=== PATIENT | male | born 1985 | race American Indian/Alaskan Native ===

== ENCOUNTER 2018-03-29 19:10 | Inpatient (IN) | payer MEDICAID ==
--- NOTE | 2018-03-29 19:56 | C.PDOC ---
History Of Present Illness Patient presents to the ER stating he is hearing voices telling him to hurt himself. Patient states he plans on overdosing on heroin and cocaine. Denies physical complaints at this time. Time Seen by Provider: 03/29/18 19:56 Chief Complaint (Nursing): Psychiatric Evaluation History Per: Patient History/Exam Limitations: no limitations Onset/Duration Of Symptoms: Days Current Symptoms Are (Timing): Still Present Suicide/Self Injury Attempted (Context): None Severity: None Pain Scale Rating Of: 0 Associated Symptoms: Suicidal Thoughts, Suicidal Plan, Other (Hearing voices) Involuntary Hold By: None Recent travel outside of the [place]: No Additional History Per: Patient Past Medical History Reviewed: Historical Data, Nursing Documentation, Vital Signs Vital Signs: Last Vital Signs Temp 98.5 F 03/29/18 21:44 Pulse 72 03/29/18 21:44 Resp 20 03/29/18 21:44 BP 105/53 L 03/29/18 21:44 Pulse Ox 98 03/29/18 22:48 - Medical History PMH: Depression, Schizophrenia Family History: States: No Known Family Hx - Social History Hx Alcohol Use: No (DENIED) Hx Substance Use: Yes Review Of Systems Constitutional: Negative for: Fever, Chills Cardiovascular: Negative for: Chest Pain, Palpitations Respiratory: Negative for: Cough, Shortness of Breath Gastrointestinal: Negative for: Nausea, Vomiting Psych: Positive for: Suicidal ideation (w/ plan), Other (Hearing voices) Physical Exam - Physical Exam Appears: Non-toxic Skin: Warm, Dry Head: Normacephalic Eye(s): bilateral: Normal Inspection Oral Mucosa: Moist Neck: Supple Chest: Symmetrical, No Tenderness Cardiovascular: Rhythm Regular Respiratory: No Rales, No Rhonchi, No Wheezing Gastrointestinal/Abdominal: Soft, No Tenderness Back: Normal Inspection Extremity: Normal ROM Extremity: Bilateral: Atraumatic Neurological/Psych: Oriented x3 Gait: Steady ED Course And Treatment - Laboratory Results Result Diagrams: 03/29/18 20:22 03/29/18 20:22 O2 Sat by Pulse Oximetry: 98 (room air) Pulse Ox Interpretation: Normal Progress Note: Blood work and urinalysis ordered. Crisis notifed. Disposition Discussed With : Elisa Palafox Comment: accepted the pt on his service and took over the care at 10:40PM Doctor Will See Patient In The: Hospital Counseled Patient/Family Regarding: Studies Performed, Diagnosis - Disposition Disposition: HOSPITALIZED Disposition Time: 19:56 Condition: FAIR Forms: [facility] (Belizean) - POA Present On Arrival: Poor Glycemic Control - Clinical Impression Clinical Impression: Schizoaffective disorder - Scribe Statement The provider has reviewed the documentation as recorded by the Scribherbert Shore All medical record entries made by the Scribe were at my direction and personally dictated by me. I have reviewed the chart and agree that the record accurately reflects my personal performance of the history, physical exam, medical decision making, and the department course for this patient. I have also personally directed, reviewed, and agree with the discharge instructions and disposition. Decision To Admit - Pt Status Changed To: Hospital Disposition Of: Inpatient - Admit Certification Admit to Inpatient:: After my assessment, the patient will require hospitalization for at least two midnights. This is because of the severity of symptoms shown, intensity of services needed, and/or the medical risk in this patient being treated as an outpatient. - InPatient: Physician Admission Certification: I certify that this patient requires 2 or more midnights of care for the following reason:: After my assessment, the patient will require hospitalization for at least two midnights. This is because of the severity of symptoms shown, intensity of services needed, and/or the medical risk in this patient being treated as an outpatient. - . Bed Request Type: Psychiatry Patient Diagnosis: Schizoaffective disorder
[2018-03-29 20:25] LABS: BASO % 0.1 % (0.0-2.0); EOS % 0.1 % (0.0-4.0); HEMOGLOBIN 10.7 g/dL (12.0-18.0); LYMPH # 1.4 K/uL (1.0-4.3); LYMPH % 13.5 % (20.0-40.0); MEAN CELL VOLUME 87.6 fL (80.0-94.0); MEAN CORPUSCULAR HEMOGLOBIN 30.3 pg (27.0-31.0); MEAN CORPUSCULAR HGB CONC 34.6 g/dL (33.0-37.0); MONO # 0.9 K/uL (0.0-0.8); MONO % 8.1 % (0.0-10.0); NEUT # 8.2 K/uL (1.8-7.0); NEUT % 78.2 % (50.0-75.0); RBC 3.52 Mil/uL (4.40-5.90); WHITE BLOOD COUNT 10.6 K/uL (4.8-10.8)
[2018-03-29 20:37] LABS: ALB/GLOB RATIO 0.9 (1.0-2.1); ALBUMIN 3.5 g/dL (3.5-5.0); ALT/SGPT 23 U/L (21-72); AST/SGOT 27 U/L (17-59); BLOOD UREA NITROGEN 17 mg/dL (9-20); CALCIUM 8.7 mg/dl (8.6-10.4); GFR AFRICAN-AMERICAN > 60; GFR NON-AFRICAN AMERICAN > 60
[2018-03-29 21:18] LABS: BARBITURATES, UR NEGATIVE (NEGATIVE); PHENCYCLIDINE, UR NEGATIVE (NEGATIVE)
[2018-03-29 21:25] LABS: SPERM URINE OCC /hpf; SQUAMOUS EPITHIAL < 1 /hpf (0-5); URINE BACTERIA RARE (<OCC); URINE BILIRUBIN NEGATIVE (NEGATIVE); URINE CLARITY Hazy (Clear); URINE COLOR Yellow (YELLOW); URINE GLUCOSE (UA) NORMAL (Normal); URINE LEUKOCYTE ESTERASE NEG Leu/uL (Negative); URINE PROTEIN 1+ mg/dL (NEGATIVE)
[2018-03-29 21:31] LABS: URINE BLOOD 1+ (NEGATIVE)
[2018-03-29 21:37] LABS: BENZODIAZEPINES, UR POSITIVE (NEGATIVE); OPIATES, UR POSITIVE (NEGATIVE)
--- NOTE | 2018-03-30 00:55 | PCM.BM ---
<Lorraine Callejas - Last Filed: 03/30/18 00:52> Treatment Plan Problems - Problems identified on initial assessmt Suicidal ideation Date Initiated: 03/29/18 Time Initiated: 00:30 Assessment reference: NA Status: Active Depression Date Initiated: 03/29/18 Time Initiated: 00:30 Assessment reference: NA Status: Active Treatment assets and liabiliti Patient Assests: cooperative, ADL independent, negotiates basic needs Patient Liabilities: live alone, substance abuse - Milieu Protocol Maintain good personal hygiene: daily Encourage regular showers, daily Remind patient to perform daily oral care, daily Assist patient to perform ADL's Maintain personal safety: every shift Educate patient to report safety concerns to staff, every shift Monitor environment for contraband/sharps Medication safety: Monitor for expected outcome, potential side effects: every shift, Assess barriers to learning: every shift, Assess readiness for medication education: every shift <Johnathan Valentine - Last Filed: 04/01/18 10:35> - Diagnosis (1) Schizoaffective disorder Status: Acute Interventions: 04/01/18 10:35 * Assess/adjust medications daily and /or as needed * See patient on an individual basis 7x/week to assess status of hallucinations * Discuss risks, benefits, side effects and alternatives of medications * (2) Opioid use disorder, severe, dependence Status: Acute Interventions: 04/01/18 10:35 * Assess 7x/week regarding severity of withdrawal * Educate regarding risks, benefits, side effects and alternatives of medications * Use Motivational Interviewing for abstinence * Use CBT for relapse prevention * Medication management for withdrawal symptoms * Encourage medication assisted treatment * <Sonya Reyes - Last Filed: 04/01/18 12:12> Family Contact Family involvement: Patient does not wish Family/SO involvement Family contact: Patient declines to allow family contact at present - Goals for Treatment Patient goals for treatment: "I want to be referred to [facility] rehab in [place]." Discharge/Continuing Care - Education Needs Education Needs: Patient Medication, Patient Diagnosis/Disease Process, Patient Coping Skills, Patient Community resources - Discharge Discharge Criteria: Free of Suicidal thoughts, Normal sleep pattern, Ability to care for self, No longer exhibiting s/s of withdrawal, Reduction of target symptoms Discharge to:: Substance Abuse Rehab - Treatment Team Participation Discussed with Family/SO: No Was Patient/Family/SO present at Treatment Team Meeting: Yes
[2018-03-30] MEDS ORDERED: Pneumococcal 23-Valent Vaccine IM ONE (01:48)
[2018-03-30 06:31] VITALS: O2SAT 97
--- NOTE | 2018-03-30 11:05 | PCM.PSYCH ---
Initial Psychiatric Evaluation - Initial Psychiatric Evaluation Type of Admission: Voluntary Legal Status: Capacity Chief Complaint (in patient's own words): "Depressed" History of Present Illness and Precipitating Events: The patient is seen, chart reviewed and case discussed. 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 The patient is here for suicidal ideation and depression. He thought about hanging himself but his friend took the rope out of his hands. He also had a suicide attempt in 2017 and hospitalized at [facility]. He says his been depressed for many years and he was also hearing voices telling him to hurt himself. He also had tactile and olfactory hallucinations recently. He uses heroin up to 20 bags IV the last 6 months but he started when he was 15 years old. He also shoot cocaine but denies other drugs. He is noncompliant with any psychiatric medications but diagnosed with schizoaffective disorder in the past and was given Zoloft, Ativan and Seroquel. Past psych history: One suicide attempt in 1 admission. Medical history: Hepatitis C and asthma Family psych history: Denies Current Medications: Active Medications Generic Name Dose Route Start Last Admin Trade Name Freq PRN Reason Stop Dose Admin Pneumococcal Polyvalent Vaccine 0.5 ml 04/01/18 10:00 Pneumovax 23 Vaccine IM 04/01/18 10:01 .ONCE ONE Trazodone HCl 100 mg 03/30/18 01:00 03/30/18 01:11 Desyrel PO 100 mg HS MAUDE Administration Past Psychiatric History - Past Psychiatric History Previous Treatment History: Inpatient Pertinent Medical Hx (Current Medical&Sleep Prob, Allergies): Allergies Allergy/AdvReac Type Severity Reaction Status Date / Time No Known Allergies Allergy Unverified 03/29/18 19:51 LORazepam [Ativan] 1 mg PO HS 03/29/18 QUEtiapine [SEROquel] 100 mg PO HS 03/29/18 Sertraline [Zoloft] 100 mg PO DAILY 03/29/18 Review of Systems - Psychiatric Psychiatric: Abnormal Sleep Pattern, Anxiety, Depression, Difficulty Concentrating, Hallucinations, Irritability. absent: Homicidal Ideation, Suicidal Ideation Mental Status Examination - Personal Presentation Personal Presentation: Looks older than stated age - Affect Affect: Constricted - Motor Activity Motor Activity: Calm - Reliability in Providing Information Reliability in Providing Information: Fair - Speech Speech: Organized - Mood Mood: Depressed, Anxious - Formal Thought Process Formal Thought Process: Hallucinations - Cognitive Functions Orientation: Person, Place, Situation, Time Sensorium: Alert Estimate of Intelligence: Average Judgement: Intact, as evidence by: Insight regarding need for hospitalization Memory: Recent intact, as evidence by: Ability to recall events of the day, Remote impaired as evidenced by: Inability to recall historical events - Risk Risk: Withdrawal, Diminished functioning - Strength & Assets Inventory Strength & Assets Inventory: Cooperative - Limitations Limitations: Living alone DSM 5 DX - DSM 5 DSM 5 Diagnosis: Schizoaffective d/o - depressed Opioid withdrawal Opioid use d/o - severe Cocaine use d/o- severe - Recommended/Plan of Treatment Treatment Recommendations and Plan of Treatment: Abilifya nd lexapro for schizoaffective-depressed Remeron for depression, insomnia Taper with methadone Gabapentin for augmentation if needed As needed medications All risks, benefits and alternatives of the meds discussed, and the pt agreed and understood. Attend groups and activities Supportive therapy and psychoeducation [place] for abstinence CBT for relapse prevention Encourage MAT Refer to rehab or IOP, and self-help groups Smoking cessation with [place] Nicotine patch if needed 34 min Projected ELOS: 6-7 days Prognosis: good with MAT and tx - Smoking Cessation Smoking Cessation Initiated: Yes
[2018-03-30] MEDS ORDERED: Albuterol HFA 90 mcg/actuation (8 g) INH PRN (11:09)
[2018-04-01] MEDS ORDERED: Pneumococcal 23-Valent Vaccine IM ONE (10:00)
--- NOTE | 2018-04-01 10:03 | PCM.PYCHPN ---
Psychiatric Progress Note - Psychiatric Progress Note Patient seen today, length of contact: 15 min Patient Chief Complaint: I am hearing voices Problems Identified/Issues Discussed: Patient seen and evaluated, chart reviewed and discussed with the nurse. Today patient appeared more organized and less internally preoccupied. Patient reports some improvement in the delusions and paranoia. He reports depressed mood and feelings of hopelessness and helplessness. But remained isolated and withdrawn. He is taking medication and denies any side effects. Symptoms are improving but she needs more time for stabilization. Medication Change: Yes Medical Record Reviewed: Yes Mental Status Examination - Cognitive Function Orientation: Person, Place, Situation, Time Memory: Intact Attention: WNL Concentration: Poor Association: WNL Fund of Knowledge: Poor - Mood Mood: Depressed, Anxious - Affect Affect: Constricted - Speech Speech: Soft - Formal Thought Process Formal Thought Process: Hallucinations - Suicidal Ideation Suicidal Ideation: No - Homicidal Ideation Homicidal Ideation: No Goal/Treatment Plan - Goal/Treatment Plan Need for Continued Stay: Severe depression anxiety, Severe functional impairment Progress Toward Problem(s) and Goals/Treatment Plan: Schizoaffective d/o - depressed Opioid withdrawal Opioid use d/o - severe Cocaine use d/o- severe Abilify and lexapro for schizoaffective-depressed Remeron for depression, insomnia Taper with methadone Gabapentin for augmentation if needed As needed medications All risks, benefits and alternatives of the meds discussed, and the pt agreed and understood. Attend groups and activities Supportive therapy and psychoeducation [place] for abstinence CBT for relapse prevention Encourage MAT Refer to rehab or IOP, and self-help groups Smoking cessation with [place] Nicotine patch if needed - Smoking Cessation Smoking Cessation Initiated: No
[2018-04-01] MEDS: Aluminum Hydroxide/Magnesium Hydroxide Susp (30 mL) PO PRN (19:31)
[2018-04-02] MEDS: Aluminum Hydroxide/Magnesium Hydroxide Susp (30 mL) PO PRN ×2 (09:12→22:01)
--- NOTE | 2018-04-02 10:33 | PCM.PYCHPN ---
Psychiatric Progress Note - Psychiatric Progress Note Patient seen today, length of contact: 15 min Patient Chief Complaint: I am feeling little better Problems Identified/Issues Discussed: Patient seen and evaluated, chart reviewed and discussed with the nurse. Today patient appeared more organized and less internally preoccupied. Patient reports some improvement in the delusions and paranoia. He reports depressed mood and feelings of hopelessness and helplessness. But remained isolated and withdrawn. He is taking medication and denies any side effects. Symptoms are improving but she needs more time for stabilization. Medication Change: Yes Medical Record Reviewed: Yes Mental Status Examination - Cognitive Function Orientation: Person, Place, Situation, Time Memory: Intact Attention: WNL Concentration: Poor Association: WNL Fund of Knowledge: Poor - Mood Mood: Depressed, Anxious - Affect Affect: Constricted - Speech Speech: Soft - Formal Thought Process Formal Thought Process: Hallucinations - Suicidal Ideation Suicidal Ideation: No - Homicidal Ideation Homicidal Ideation: No Goal/Treatment Plan - Goal/Treatment Plan Need for Continued Stay: Severe depression anxiety, Severe functional impairment Progress Toward Problem(s) and Goals/Treatment Plan: Schizoaffective d/o - depressed Opioid withdrawal Opioid use d/o - severe Cocaine use d/o- severe Attend groups and activities Supportive therapy and psychoeducation [place] for abstinence CBT for relapse prevention Encourage MAT Refer to rehab or IOP, and self-help groups Smoking cessation with [place] Nicotine patch if needed D/C Abilify lexapro Start olanzapine Remeron for depression, insomnia Taper with methadone Gabapentin for augmentation if needed As needed medications All risks, benefits and alternatives of the meds discussed, and the pt agreed and understood. - Smoking Cessation Smoking Cessation Initiated: No
[2018-04-02] MEDS: Pantoprazole 40 mg EC Tab PO SCH (16:22)
[2018-04-03 06:41] VITALS: RESP 18; TEMP 98.4
[2018-04-03] MEDS: Pantoprazole 40 mg EC Tab PO SCH (10:20)
--- NOTE | 2018-04-03 11:47 | PCM.PYCHPN ---
Psychiatric Progress Note - Psychiatric Progress Note Patient seen today, length of contact: 15 min Patient Chief Complaint: I am feeling better.' Problems Identified/Issues Discussed: Patient seen and evaluated, chart reviewed and discussed with the nurse. Today patient appears more organized and less depressed. He reports improvement in the feelings of hopelessness and helplessness. He is taking medication and denies any side effects. Symptoms are improving but she needs more time for stabilization. Supportive therapy was given. Medication Change: Yes Medical Record Reviewed: Yes Mental Status Examination - Cognitive Function Orientation: Person, Place, Situation, Time Memory: Intact Attention: WNL Concentration: Poor Association: WNL Fund of Knowledge: Poor - Mood Mood: Depressed, Anxious - Affect Affect: Constricted - Speech Speech: Soft - Formal Thought Process Formal Thought Process: No Impairment - Suicidal Ideation Suicidal Ideation: No - Homicidal Ideation Homicidal Ideation: No Goal/Treatment Plan - Goal/Treatment Plan Need for Continued Stay: Severe depression anxiety, Severe functional impairment Progress Toward Problem(s) and Goals/Treatment Plan: Schizoaffective d/o - depressed Opioid withdrawal Opioid use d/o - severe Cocaine use d/o- severe Attend groups and activities Supportive therapy and psychoeducation [place] for abstinence CBT for relapse prevention Encourage MAT Refer to rehab or IOP, and self-help groups Smoking cessation with [place] Nicotine patch if needed lexapro olanzapine Remeron Taper with methadone Gabapentin for augmentation if needed As needed medications All risks, benefits and alternatives of the meds discussed, and the pt agreed and understood. - Smoking Cessation Smoking Cessation Initiated: No
[2018-04-03 15:45] VITALS: BP 104/63; PULSE 96
--- NOTE | 2018-04-04 10:06 | PCM.PYCHDC ---
Mental Status Examination - Mental Status Examination Orientation: Person, Place, Situation, Time Memory: Intact Mood: Neutral Affect: Constricted Speech: Soft Attention: WNL Concentration: WNL Association: WNL Fund of Knowledge: WNL Formal Thought Process: No Impairment Description of patient's judgement and insight: good, fair Psychotic Thoughts and Behaviors: denies any AVH Suicidal Ideation: No Current Homicidal Ideation?: No Discharge Summary - Discharge Note Reason for Hospitalization: The patient is seen, chart reviewed and case discussed. 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 The patient is here for suicidal ideation and depression. He thought about hanging himself but his friend took the rope out of his hands. He also had a suicide attempt in [address] [facility]. He says his been depressed for many years and he was also hearing voices telling him to hurt himself. He also had tactile and olfactory hallucinations recently. He uses heroin up to 20 bags IV the last 6 months but he started when he was 15 years old. He also shoot cocaine but denies other drugs. He is noncompliant with any psychiatric medications but diagnosed with schizoaffective disorder in the past and was given Zoloft, Ativan and Seroquel. Consultations:: List each consultation separately and include: 1. Reason for request. 2. Findings. 3. Follow-up Summary of Hospital Course include:: 1. Description of specific treatment plan utilized for patients during their course of treatmen. 2. Summarize the time- course for resolution of acute symptoms and/or regressed behaviors. 3. Describe issues identified and worked on during hospitalization. 4. Describe medication utilized. 5. Describe medical problems identified and treated. 6. Reassessment of suicide risk Summary of Hospital Course: During the course of his stay, patient (pt) started progressively improving and he no longer remained irritable, depressed, and suicidal. His mood was improved and he started attending groups and meetings and started socializing. Patient denied any feelings of hopelessness, helplessness, and worthlessness, denied any problem with the sleep or appetite, denied suicidal ideation or homicidal ideation. Pt denied any auditory or visual hallucinations. Some changes were made in his current medications and patient was discharged on following medications. He tolerated these medications very well and denied any side effects. CBT and [place] were used. Patient was discharged to methadone clinic. A referral was also sent to [facility]. - Diagnosis (1) Schizoaffective disorder Status: Acute (2) Opioid use disorder, severe, dependence Status: Acute - Final Diagnosis (DSM 5) Condition upon Discharge: FAIR DSM 5: Schizoaffective d/o - depressed Opioid withdrawal Opioid use d/o - severe Cocaine use d/o- severe Disposition: HOME/ ROUTINE Follow-up Treatment Plan: Education: Pt was educated and counseled about the risks and benefits of taking and not taking medications. Pt was educated and counseled about the risks of drinking and abusing drugs. Pt was educated and counseled to go to the ER or call 911 if pt develop suicidal ideation or homicidal ideation, worsening of symptoms or severe side effects of the meds. Prescriptions/Medication Reconciliation: Benztropine [Cogentin] 1 mg PO BID #60 tab Escitalopram [Lexapro] 10 mg PO DAILY #30 tab Mirtazapine [Remeron] 30 mg PO HS #30 tab OLANZapine [Zyprexa] 10 mg PO BID #60 tab QUEtiapine [Seroquel] 100 mg PO HS #30 tab - Smoking Cessation Smoking Cessation Medication prescribed: No - Antipsychotic Medications Pt discharged on 2 or more routine antipsychotic medications: No
[2018-04-04] MEDS: Pantoprazole 40 mg EC Tab PO SCH (10:54)
--- NOTE | 2018-04-04 22:47 | PCM.PYCHPN ---
Psychiatric Progress Note - Psychiatric Progress Note Patient seen today, length of contact: 15 min Patient Chief Complaint: "Depressed" Medication Change: Yes Medical Record Reviewed: Yes Mental Status Examination - Cognitive Function Orientation: Person, Place, Situation, Time Memory: Intact Attention: WNL Concentration: WNL Association: WNL Fund of Knowledge: WNL - Mood Mood: Neutral - Affect Affect: Constricted - Speech Speech: Soft - Formal Thought Process Formal Thought Process: No Impairment - Suicidal Ideation Suicidal Ideation: No - Homicidal Ideation Homicidal Ideation: No Goal/Treatment Plan - Goal/Treatment Plan Need for Continued Stay: Severe depression anxiety, Severe functional impairment Progress Toward Problem(s) and Goals/Treatment Plan: Abilifya nd lexapro for schizoaffective-depressed Remeron for depression, insomnia Taper with methadone Gabapentin for augmentation if needed As needed medications All risks, benefits and alternatives of the meds discussed, and the pt agreed and understood. Attend groups and activities Supportive therapy and psychoeducation [place] for abstinence CBT for relapse prevention Encourage MAT Refer to rehab or IOP, and self-help groups Smoking cessation with [place] Nicotine patch if needed 34 min
== END 2018-04-04 11:08 | disposition home or self-care (01) | DRG 430 ==
LOC: C.ER 19:10 → C.5E 22:37
PROVIDERS: ADMIT Psychiatry & Neurology Psychiatry; ATTEND Psychiatry & Neurology Psychiatry
PROC: GZHZZZZ Group Psychotherapy (ICD-10-PCS; principal; 2018-03-29)
PROC: GZ58ZZZ Individual Psychotherapy, Cognitive-Behavioral (ICD-10-PCS; 2018-03-29)
PROC: GZ56ZZZ Individual Psychotherapy, Supportive (ICD-10-PCS; 2018-03-29)
DX: F25.1 Schizoaffective disorder, depressive type (principal); F11.23 Opioid dependence with withdrawal; Z91.19 Patient's noncompliance with other medical treatment and regimen; R45.851 Suicidal ideations; J45.909 Unspecified asthma, uncomplicated; G47.00 Insomnia, unspecified; F41.8 Other specified anxiety disorders